=== PATIENT | male | born 1985 | race Caucasian/White ===

== ENCOUNTER 2020-09-10 07:36 | Emergency (ER) | payer MEDICAID, SELFPAY ==
[2020-09-10 07:53] VITALS: BP 132/91; PULSE 70; RESP 18; TEMP 36.7; O2SAT 97; BMI 26.6
--- NOTE | 2020-09-10 08:08 | ED_ITS ---
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 States he is wondering if this can be sutured closed. He otherwise offers no complaints no discharge no pain, redness, swelling or dysuria or troubles with erection. Onset (ago): month(s) Radiation: non-radiation Severity: mild Relieving factors: none Exacerbating factors: none Associated symptoms: denies other symptoms Treatments prior to arrival: none Review of Systems Review of Systems: Constitutional: No Weight loss, No Fever, No Chills, No Night Sweats, No Fatigue, No Malaise ENT/Mouth: No Hearing loss, No Ear Pain, No Nasal Congestion, No Sinus Pain, No Hoarseness, No sore throat, No Rhinorrhea, No Swallowing Difficulty Eyes: No Eye Pain, No Swelling, No Redness, No Foreign Body, No Discharge, No Vision Changes Cardiovascular: No Chest Pain, No SOB, No Dyspnea on Exertion, No Orthopnea, No Edema, No Palpitations Respiratory: No Cough, No Sputum, No Wheezing, No Smoke Exposure, No Dyspnea Gastrointestinal: No Nausea, No Vomiting, No Diarrhea, No Constipation, No abdominal Pain, No Hematochezia, No Melena Genitourinary: No Dysuria, No Urinary Frequency, No Hematuria, No Urinary Incontinence, No Urgency, No Flank Pain, No Urinary Flow Changes, No Hesitancy Musculoskeletal: No joint pain, No Myalgias, No Joint Swelling Skin: No Skin Lesions, No rash Neuro: No Weakness, No Numbness, No Paresthesias, No Loss of Consciousness, No D izziness, No Headache Psych: No Social Issues Heme/Lymph: No Bruising, No Bleeding,No Lymphadenopathy Endocrine: No Polyuria, No Polydipsia, No Temperature Intolerance Yes all other systems are reviewed and are negative PENDING SALE TO [facility] Social History Social History Alcohol intake: never Smoked in Last 30 Days: No Use of substances other than those prescribed or required for medical reasons: No Advance Directives: Yes Advance Directives Information Provided: No Advance Directives on File: No Physical Exam Vital Signs: Vital Signs: Last Vital Signs Temp 98.1 F 09/10/20 07:53 Pulse 70 09/10/20 07:53 Resp 18 09/10/20 07:53 BP 132/91 H 09/10/20 07:53 Pulse Ox 97 09/10/20 07:53 Body Mass Index 26.6 Reviewed Const: General: cooperative and healthy appearing; No acute distress or intoxicated appearing Nutritional Appearance: average body habitus Orientation/consciousness: patient oriented x3 HENMT: Head: Yes normal to inspection Ears: hearing grossly normal bilaterally Resp: Effort & Inspection: normal respiratory effort Cardio: Jugular venous distension: no JVD : Other: Penis: uncircumcised Skin: General skin exam: no rashes or lesions noted Neuro: General: patient oriented x3 Extrem: General: Yes normal to inspection Course Course Course Narrative: Aware that this is not a suturable situation he needs to see Urology and maybe even plastic, referral provided to Dr. Montana. There is no signs of acute infection there is no foreign body or acute complaints. Reevaluation(s) Reevaluation #1: Discharge Plan Discharge Clinical Impression: Penile abnormality Patient Disposition: Home, Self-Care Instructions: Foreskin Care (ED) Additional Instructions: The penile shaft bead has come out and because this was in for extended period time as created a pocket that we cannot suture. Home care as instructed Please do not attempt to reinsert the foreign body back in to the foreskin Please follow-up with urologist as discussed Thank you Referrals: Francis Montana MD [Physician] - 1 week Discharge Date/Time: 09/10/20 08:59
== END 2020-09-10 08:59 | disposition home or self-care (01) ==
PROVIDERS: Emergency Provider Emergency Medicine Emergency Medical Services
DX: S31.21XA Laceration without foreign body of penis, initial encounter (principal); N48.89 Other specified disorders of penis; Y28.9XXA Contact with unspecified sharp object, undetermined intent, initial encounter; Y93.9 Activity, unspecified; Y92.9 Unspecified place or not applicable; Y99.9 Unspecified external cause status
CPT/HCPCS: 99283; 99284

== ENCOUNTER → 2020-09-17 10:11 | Outpatient (BNVA) | payer MEDICAID, SELFPAY | PROVIDERS: Visit Provider Urology | DX: Z13.89 Encounter for screening for other disorder (principal) | CPT/HCPCS: 99202 ==

== ENCOUNTER 2020-09-24 07:32 | Outpatient (REF) | payer MEDICAID, SELFPAY ==
[2020-09-24 07:34] VITALS: BMI 22.6
[2020-09-24 07:35] VITALS: BMI 22.6
[2020-09-24 07:36] VITALS: BP 127/87; PULSE 63; RESP 16; TEMP 36.7; O2SAT 99
[2020-09-24 08:55] VITALS: BP 138/82; PULSE 52; RESP 16; O2SAT 97
--- NOTE | 2020-09-25 08:35 | MHC.SHP ---
Pre-Procedural Eval Section A The patient is an INPATIENT: No Changes since office visit: No Cold of Flu in the past 2 weeks, No New Medical Problems, No Changes in Medication and No Patient answered all questions The History & Physical has been completed within 30 days and I have reviewed it.: Yes Section B Chief Complaint: foreign body in penis Allergies: Allergies Allergy/AdvReac Type Severity Reaction Status Date / Time No Known Allergies Allergy Verified 09/24/20 09:37 Plan Diagnosis/Plan: Unchanged I have reviewed the history and physical and performed a pertinent physical examination on my patient. No changes have occurred unless specified.
--- NOTE | 2020-09-25 08:35 | W.PM.OPN ---
Operative Note Operative Note Date of Service: 09/24/20 Narrative: PreOperative Diagnosis: Scarring secondary to penile foreign body Post Operative Diagnosis: Penile scarring secondary to foreign body Procedure: Excision of penile scar tissue Surgeon: Dr Francis Montana Anesthesia: Local Indications for procedure: Scarring on dorsum of penis secondary to foreign body which became infected and was removed. Procedure: After informed consent was verified the patient was brought to the operating room and placed in a supine position. The area was prepped with Betadine and draped. Local anesthetic 1% with epi was infiltrated under the scar tissue and around. An elliptical incision approximately 1 in in length was made that surrounded the scar tissue. The incision was taken through the dermal layers. Using sharp tenotomy scissors is the scar tissue was removed in an oval-shaped. The area was then closed with 10 interrupted 4-0 chromic sutures. Pathology: Penile scar tissue Drains: none
== END 2020-09-24 07:33 | disposition home or self-care (01) ==
LOC: HO.MS 07:32
PROVIDERS: Visit Provider Urology
PROC: (CPT 10120; principal; 2020-09-24 08:00)
DX: T19.4XXA Foreign body in penis, initial encounter (principal); X58.XXXA Exposure to other specified factors, initial encounter; Y93.9 Activity, unspecified; Y92.9 Unspecified place or not applicable; Y99.8 Other external cause status
CPT/HCPCS: 10120; 88305